=== PATIENT | female | born 1990 | race African-American/Black ===

== ENCOUNTER 2018-07-06 00:41 | Emergency (ER) | payer OTHER ==
[~2018-07-06] VITALS: Ht 149.9 cm; Wt 46.3 kg
--- NOTE | 2018-07-06 00:49 | NUR ---
pt ambulatory w/ steady gait, c/o intermittent lt sided abd pain w/ no bm x4 days. pt tried taking colace today & when attempting to have a bm, noticed rectal bleeding when wiping. AOx4, afebrile w/ resp even & unlabored, denies any N/V or diarrhea w/ no report active bleeding at this time. pt VSS at this time, instructed to wait in ER WR d/t ER saturation, no available bed at this time.
--- NOTE | 2018-07-06 01:24 | NUR ---
pt called to ER bed, ambulatory w/ steady gait, resp even & unlabored w/ nad noted. pt in gown, sitting up in bed, awaiting further eval fr [facility].
--- NOTE | 2018-07-06 01:47 | NUR ---
[facility] STARTED, LABS DRAWN & SENT TO LAB.
[2018-07-06 01:59] LABS: BASOPHILS # (AUTO) 0.1 /CMM (0.0-0.2); BASOPHILS % (AUTO) 0.4 % (0.0-2.0); HEMATOCRIT 41 % (33-45); HEMOGLOBIN 13.7 g/dL (11.5-14.8); LYMPHOCYTES % (AUTO) 7.8 % (20.0-44.0); MEAN CORPUSCULAR HGB CONC 33 g/dl (31.0-36.0); MEAN CORPUSCULAR VOLUME 94 fL (82-100); MONOCYTES # (AUTO) 0.8 /CMM (0.1-1.30); MONOCYTES % (AUTO) 6.2 % (2.0-12.0); NEUTROPHILS # (AUTO) 11.3 /CMM (1.8-8.9); NEUTROPHILS % (AUTO) 85.6 % (43.0-81.0); PLATELET COUNT (AUTO) 223 /CMM (150-450); RED BLOOD CELL COUNT(AUTO) 4.42 MIL/uL (4.0-5.2); WHITE BLOOD COUNT (AUTO) 13.2 K/uL (4.3-11.0)
[2018-07-06 02:07] LABS: CALCIUM, SERUM 9.6 mg/dL (8.5-10.1); CREATININE 0.9 mg/dL (0.6-1.3); POTASSIUM 3.3 mmol/L (3.5-5.1)
--- NOTE | 2018-07-06 02:24 | NUR ---
pt ambulatory w/ steady gait to restroom w/ resp even & unlabored, nad noted.
--- NOTE | 2018-07-06 03:08 | NUR ---
Assist Dr. Ackerman w/ rectal exam. No small hemorrhoid w/ no active bleeding noted. pt tolerated procedure well w/ nad noted.
[2018-07-06] MEDS ORDERED: BISACODYL SUPP (10 MG) 10 MG/SUPP.RECT SUPP.RECT RC ONE ×2 (03:12→03:30)
[2018-07-06] MEDS ORDERED: NA PHOS,M-B/NA PHOS,DI-BA 1 EA ENEMA RC ONE ×2 (03:12→03:30)
--- NOTE | 2018-07-06 04:08 | NUR ---
pt report unable to have bm even after rectal suppository given. Fleets enema performed.
--- NOTE | 2018-07-06 04:35 | NUR ---
pt report able to have bm after fleets enema. IV removed. Catheter intact and site benign. Pressure and 4x4 applied to site. No bleeding noted. Patient ambulatory w/ steady gait, resp even & unlabored w/ nad noted, discharged to home in stable condition. Written and verbal after care instructions given. Patient verbalizes understanding of instruction.
[2018-07-06 04:36] VITALS: BP 128/86
== END 2018-07-06 04:37 | disposition home or self-care (01) ==
LOC: ER 01:03
DX: K59.00 Constipation, unspecified (principal); K64.9 Unspecified hemorrhoids; F17.200 Nicotine dependence, unspecified, uncomplicated
CPT/HCPCS: 36415; 80048-TC; 84702-TC; 85025-TC; 85730-TC; 86850-TC